=== PATIENT | male | born 1975 | race Caucasian/White ===

== ENCOUNTER 2022-11-01 08:11 | Outpatient (CLI) | payer OTHER, SELFPAY ==
[2022-11-01 13:55] LABS: Creatinine Urine 96.7 mg/dL
[2022-11-01 14:03] LABS: Microalbumin Creatinine Ratio 10 mg/g (0-30); Microalbumin Urine 1 mg/dL
[2022-11-01 14:26] LABS: Albumin* 4.7 g/dL (3.3-5.0); Chloride* 104 mmol/L (96-114); Sodium* 140 mmol/L (135-149)
[2022-11-01 14:27] LABS: Potassium* 5.1 mmol/L (3.6-5.1)
[2022-11-01 14:28] LABS: Cholesterol* 160 mg/dL (90-199)
[2022-11-01 14:29] LABS: Alanine Aminotransferase* 31 U/L (4-50); Alkaline Phosphatase* 57 U/L (40-150); Aspartate Amino Transferase* 36 U/L (12-35); Bilirubin Total* 0.9 mg/dL (0.1-1.5); Blood Urea Nitrogen* 18 mg/dL (5-24); Carbon Dioxide* 30 mmol/L (20-32); Creatinine* 0.9 mg/dL (0.5-1.5); Estimated Glomerular Filt Rate 106 ml/min; Glucose* 105 mg/dL (60-115); Total Protein* 7.7 g/dL (6.0-8.3); Triglycerides* 58 mg/dL (40-149); Uric Acid* 6.5 mg/dL (2.2-8.4)
[2022-11-01 14:30] LABS: Calcium* 9.4 mg/dL (8.4-10.6); HDL Cholesterol* 58 mg/dL (>=40); LDL Cholesterol Calculated 90 mg/dL (<100)
== END 2022-11-01 08:12 | disposition home or self-care (01) ==
PROVIDERS: PCP Family Medicine; Visit Provider Family Medicine
DX: Z00.00 Encounter for general adult medical examination without abnormal findings (principal); I10 Essential (primary) hypertension; K75.81 Nonalcoholic steatohepatitis (NASH); M10.9 Gout, unspecified; Z13.6 Encounter for screening for cardiovascular disorders
CPT/HCPCS: 80053; 80061; 82043; 82570; 84550

== ENCOUNTER 2023-01-12 06:45 | Outpatient (CLI) | payer OTHER, SELFPAY | END 2023-01-12 06:46 | disposition home or self-care (01) | PROVIDERS: PCP Family Medicine; Visit Provider Internal Medicine | DX: Z12.11 Encounter for screening for malignant neoplasm of colon (principal); K63.5 Polyp of colon; K57.30 Diverticulosis of large intestine without perforation or abscess without bleeding | CPT/HCPCS: 45378; 45380; 88305; J2250; J2405; J3010 ==

== ENCOUNTER 2023-10-30 00:59 | Emergency (ER) | payer OTHER, SELFPAY ==
[2023-10-30 01:05] VITALS: BP 165/94; PULSE 84; RESP 16; TEMP 37.3; O2SAT 97; O2SAT 98; BMI 31.9
--- NOTE | 2023-10-30 01:55 | ED_ITS ---
HPI - General Adult General Chief complaint: Back Injury/Pain Stated complaint: back pain Time Seen by Provider: 10/30/23 01:17 Source: patient and family Mode of arrival: ambulatory Limitations: no limitations History of Present Illness HPI narrative: 48-year-old male presents to the ED with back pain for the past 4 days. Initially was quite mild. Started initially on the right outer hip area, radiating down the right leg towards the knee. Was initially just with getting out of his car and would improve after a few steps, achy in nature. Cannot be specifically reproduced with any movement or palpation at that time. Reports that for the past 24 hours the pain has been worsening. Pain is now coming from the right low back area radiating down the outer right hip towards the knee. No trauma or injury, no prior history of similar symptoms. He went to the chiropractor for an adjustment this afternoon which unfortunately did not improve his symptoms. He has no numbness or tingling, no weakness. No loss of bowel or bladder control. 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 He tried taking 2 ibuprofen twice in the last 24 hours and Tylenol 1 time with no significant improvement in his symptoms. Patient was awoken from sleep with pain in the middle of the night tonight and was unable to get his pants on and get himself to the bathroom due to pain. His brings him to the ED after his son's assisted him to the car. No prior history of similar symptoms, did not try taking any medication prior to coming to the ED when he was awoken with pain. No rash, no history of shingles. No x- rays or imaging. Reports that his past medical history is essentially fairly benign. He does have a history of hypertension and is on losartan and hydrochlorothiazide for this. He has had gout and is on allopurinol for prophylaxis. Allergies none known. Nonsmoker. ROS is notable for the musculoskeletal symptoms as above. Negative for neurological, generalized, GI or urinary changes. Related Data Previous Rx's Medication Instructions Recorded allopurinol 300 mg tablet 300 mg PO QDAY #90 tabs 11/01/22 hydrochlorothiazide 25 mg tablet 25 mg PO QDAY #90 tabs 11/01/22 indomethacin 25 mg capsule 25 mg PO Q6H PRN gouty flare 48 12/21/22 hours #30 caps losartan 50 mg tablet 50 mg PO QDAY #90 tabs 11/01/22 peg 3350-electrolytes 236 240 ml PO Q10M #4,000 mL 11/15/22 gram-22.74 gram-6.74 gram-5.86 gram solution (Golytely) peg 3350-electrolytes 236 240 ml PO ONCE #4,000 mL 12/29/22 gram-22.74 gram-6.74 gram-5.86 gram solution (Golytely) Allergies Allergy/AdvReac Type Severity Reaction Status Date / Time No Known Allergies Allergy Unknown Unverified 11/01/22 07:53 [facility] Medical History (Updated 10/30/23 @ 02:06 by Lara Ritter MD) Periodic limb movement disorder (09/03/13) ?G47.61 - Periodic limb movement disorder (ICD-10) History of nephrolithotomy with removal of calculi ?Z98.890 - Other specified postprocedural states (ICD-10) ?Z87.442 - Personal history of urinary calculi (ICD-10) Calculus of kidney (10/29/12) ?N20.0 - Calculus of kidney (ICD-10) Surgical History (Updated 10/27/22 @ 14:32 by Micheal Walton) History of vasectomy (10/29/12) ?Z98.52 - Vasectomy status (ICD-10) Family History (Updated 10/27/22 @ 14:41 by Micheal Walton) Father Alcohol abuse Stroke Family/Other Diabetes Sister Drug abuse Social History (Updated 10/27/22 @ 14:42 by Micheal Walton) Narrative: engages in golf for recreation- 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 No intoxication or impairment. HENMT: Common normals: normocephalic Head and scalp: normocephalic Face and sinus: normal facial exam Mouth: oral and palatal mucosa normal Eye: Common normals: conjunctivae normal General eye: normal appearance of both eyes Conjunctiva: conjunctiva(e) normal Resp: Common normals: normal respiratory effort and clear to auscultation bilaterally Effort & inspection: able to speak in complete sentences Auscultation: clear to auscultation bilaterally Cardio: Common normals: regular rate, regular rhythm, S1 normal heart sound, S2 normal heart sound and no murmurs Rate: regular rate Rhythm: regular rhythm Heart sounds: S1 normal and S2 normal GI: Common normals: Normal to inspection, nondistended, normoactive bowel sounds present, soft to palpation, non-tender, no hepatosplenomegaly and no masses Palpation: soft and no hepatosplenomegaly : Common normals: no CVA tenderness Bladder/kidney exam: no CVA tenderness Back & Pelvis: Common normals: no CVA tenderness Other: No bony tenderness to thoracolumbar spine. No deformity common fairly normal curvature. No tenderness over SI joints. There is some moderate tenderness over the right paraspinal muscles. Patient has much difficulty with straight leg lift exam. I do have to a system. Does have increased pain from the 30 to 70 degree arc but does have significant difficulty even initiating the movement on the right side. Left side test normally. Difficult back exam but does have worse pain with extension as opposed to flexion. Exam is quite difficult due to pain. Extremity: Other: Normal range of motion in right hip with no point tenderness over the greater trochanter or bursa area. Knees and ankles appear grossly normal with normal capillary refill and no swelling. Neuro: Other: Normal sensation and strength to lower legs. Psych: Activity/motor behavior: appropriate eye contact Mood and affect: euthymic mood Insight: insight good Judgement: judgment good Skin: Common normals: no rashes or lesions noted General skin exam: no rashes or lesions noted Course Course ED Course: Suspect lumbar herniated disc at the L3/L4 area. No trauma, would not benefit from x-ray or imaging. Will try symptomatic control with 40 mg of prednisone, 10 of oxycodone, 10 of Flexeril and 10 of Toradol. Re-evaluate. Counseled patient that will need follow-up with primary care for physical therapy referral. Will need to be on prednisone for the next few days, counseled on Tylenol and ibuprofen. Alarm symptoms reviewed that would warrant ED presentation. If no improvement after course of physical therapy, would likely benefit from advanced imaging. Reevaluation(s) Reevaluation #1: Patient reporting the pain is quite a bit better, still worse with movement. Will attempt trials of ambulation, if he can safely transfer, he would be able to go home. Prescriptions discussed. No work for 24 hours, then may re- attempt. Vital Signs Vital signs: Initial Vital Signs Temperature 99.1 F 10/30/23 01:05 Temperature Source Temporal Artery Scan 10/30/23 01:05 Pulse Rate 84 10/30/23 01:05 Respiratory Rate 16 10/30/23 01:05 Blood Pressure 165/94 H 10/30/23 01:05 Blood Pressure Mean 117 H 10/30/23 01:05 Blood Pressure Position Sitting 10/30/23 01:05 Pulse Oximetry 98 10/30/23 01:05 Oxygen Delivery Method Room Air 10/30/23 01:05 Vital Signs Temperature 99.1 F 10/30/23 01:05 Pulse Rate 84 10/30/23 01:05 Respiratory Rate 16 10/30/23 01:05 Blood Pressure 165/94 H 10/30/23 01:05 Pulse Oximetry 98 10/30/23 01:05 Oxygen Delivery Method Room Air 10/30/23 01:05 Temperature 99.1 F 10/30/23 01:05 Pulse Rate 84 10/30/23 01:05 Respiratory Rate 16 10/30/23 01:05 Blood Pressure 165/94 H 10/30/23 01:05 Pulse Oximetry 98 10/30/23 01:05 Oxygen Delivery Method Room Air 10/30/23 01:05 Medications Administered Medications: Discontinued Medications Generic Name Dose Route Start Last Admin Trade Name Freq PRN Reason Stop Dose Admin Cyclobenzaprine HCl 10 mg 10/30/23 01:46 10/30/23 01:56 Cyclobenzaprine Hcl 10 Mg Tablet PO 10/30/23 01:47 10 mg ONCE ONE Administration Ketorolac Tromethamine 10 mg 10/30/23 01:46 10/30/23 01:56 Ketorolac 10 Mg Tablet PO 10/30/23 01:47 10 mg ONCE ONE Administration Oxycodone HCl 5 mg 10/30/23 01:46 10/30/23 01:56 Oxycodone 5 Mg Tablet PO 10/30/23 01:47 5 mg ONCE ONE Administration Prednisone 40 mg 10/30/23 01:46 10/30/23 01:56 Prednisone 10 Mg Tablet PO 10/30/23 01:47 40 mg ONCE ONE Administration Discharge Plan Discharge Clinical Impression: Herniation of intervertebral disc of lumbar region Patient Disposition: Home w/ Parent or Adult Condition: Improved Instructions: Lumbar Radiculopathy (ED) Additional Instructions: As we discussed, I suspect your pain is from herniated disc in your lower back that is pressing on the nerve that feeds the outer part of your leg. These can be quite painful but often come on gradually. I have started you on some prednisone, a potent anti-inflammatory medication that will help with the inflammation within a few days. Your given a dose early this morning, take another dose at about 2:00 p.m.. You will then continue on this once every morning starting Sunday until your supply is gone. It will take a few days for this to kick in. You will need to take Tylenol 1000 mg every 6 hours on a scheduled basis for the next 5 days. You may add in ibuprofen 600 mg every 6 hours if this is not enough to treat your pain. I will give you a very limited supply of oxycodone to use for severe pain. Hopefully once the prednisone kicks in you do not need to continue taking that medication. Try to wean off of the oxycodone as soon as possible. It may cause constipation. You should take an [id number] stool softener or laxative to help with this as needed. I will also give you a supply of Flexeril, a muscle relaxant to take at night. The Flexeril is actually not addictive and safer to use long-term than the oxycodone. You may take it during the day if your pain is very severe but it likely will cause some drowsiness. No work today. No returning to work until you are off of the oxycodone which will likely be in 24-48 hours. Schedule follow-up appointment with her primary care provider in 3-10 days. They will recheck how things are going and place a referral to physical therapy. If his will therapy is unsuccessful, then an MRI would be recommended. Activity Level: Activity as Tolerated Discharge Diet: Regular Prescriptions: No Action allopurinol 300 mg tablet 300 mg PO QDAY Qty: 90 3RF hydrochlorothiazide 25 mg tablet 25 mg PO QDAY Qty: 90 3RF losartan 50 mg tablet 50 mg PO QDAY Qty: 90 3RF indomethacin 25 mg capsule 25 mg PO Q6H PRN (Reason: gouty flare) 2 Days Qty: 30 1RF Rx Instructions: administer with food or milk peg 3350-electrolytes [Golytely] 236-22.74-6.74 -5.86 gram recon soln 240 ml PO Q10M Qty: 4000 0RF Rx Instructions: until fecal effluent is clear peg 3350-electrolytes [Golytely] 236-22.74-6.74 -5.86 gram recon soln 240 ml PO ONCE Qty: 4000 0RF Rx Instructions: 4pm day prior to procedure. Drink 8oz glass every 15 minutes until 1/2 of solution is gone. 6 hours prior to your procedure time drink 8oz glass every 15 minutes until remaining solution is gone. Follow Up/Referrals: Elizabeth Dean DO [Primary Care Provider] - Stand Alone Forms: [facility] Info Instructions
[2023-10-30] MEDS: KETOROLAC 10 MG TABLET PO (01:56)
[2023-10-30] MEDS: OXYCODONE 5 MG TABLET PO (01:56)
[2023-10-30] MEDS: CYCLOBENZAPRINE HCL 10 MG TABLET PO (01:56)
[2023-10-30] MEDS: predniSONE 10 MG TABLET 40 MG PO (01:56)
[2023-10-30 03:20] VITALS: BP 141/79; PULSE 71; RESP 16; TEMP 36.9; O2SAT 99
[2023-10-30 03:21] VITALS: BP 141/79; PULSE 71; RESP 16; TEMP 36.9
--- NOTE | 2023-10-30 03:24 | ED.NURSE ---
at discharge pt states no pain at rest, minimal pain sitting in wheelchair, pain and weakness in leg when standing on affected leg. pt wheelchaired to wifes ride home.
== END 2023-10-30 03:23 | disposition home or self-care (01) ==
PROVIDERS: Emergency Provider Family Medicine; PCP Family Medicine
DX: M51.16 Intervertebral disc disorders with radiculopathy, lumbar region (principal)
CPT/HCPCS: 94761; 95992; 99283; A9270; J7512

== ENCOUNTER 2024-02-28 07:45 | Outpatient (CLI) | payer OTHER, SELFPAY | END 2024-02-28 07:46 | disposition home or self-care (01) | LOC: NFLDREF 02-29 10:05 | PROVIDERS: PCP Physician Assistant Medical; Referring Provider Physician Assistant Medical; Visit Provider Physician Assistant Medical | DX: I10 Essential (primary) hypertension (principal); K75.81 Nonalcoholic steatohepatitis (NASH); M10.9 Gout, unspecified | CPT/HCPCS: 80053; 80061; 84443 ==

== ENCOUNTER 2025-01-22 15:24 | Outpatient (CLI) | payer OTHER, SELFPAY ==
--- NOTE | 2025-02-10 12:08 | W.PM.SLEEP ---
Sleep Study Details Details Interpreting Provider: Prosper Date of Sleep Study: 01/22/25 Sleep Study Details: STUDY TYPE:? Home unattended ? BMI:? Not recorded ORDERING PROVIDER:? Prosper INDICATION:? Concerned about sleep apnea ? SLEEP SUMMARY:? 395 minutes monitored RESPIRATORY SUMMARY:? AHI 47 Low oxygen 82 2.2% of study oxygen less than 90% Snoring 97% PERIODIC LIMB MOVEMENTS OF SLEEP:? Not recorded CARDIAC:? 55-101, mean 71.7 beats per minute IMPRESSION:? Severe obstructive sleep apnea RECOMMENDATION: Treatment options include CPAP either AutoSet are in-lab titration.
== END 2025-01-22 15:25 | disposition home or self-care (01) ==
PROVIDERS: PCP Physician Assistant Medical; Visit Provider Otolaryngology
DX: G47.33 Obstructive sleep apnea (adult) (pediatric) (principal)
CPT/HCPCS: 95806

== ENCOUNTER 2025-03-25 08:41 | Outpatient (CLI) | payer OTHER, SELFPAY | END 2025-03-25 08:42 | disposition home or self-care (01) | LOC: FRMREF 08:42 | PROVIDERS: PCP Physician Assistant Medical; Visit Provider Physician Assistant Medical | DX: Z00.01 Encounter for general adult medical examination with abnormal findings (principal); I10 Essential (primary) hypertension; K75.81 Nonalcoholic steatohepatitis (NASH); Z12.5 Encounter for screening for malignant neoplasm of prostate; Z11.8 Encounter for screening for other infectious and parasitic diseases | CPT/HCPCS: 80053; 80061; 84443; 86618; G0103 ==